=== PATIENT | female | born 2000 | race African-American/Black ===

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

== ENCOUNTER 2019-08-07 08:10 | Emergency (ER) | payer BC ==
[2019-08-07 08:16] VITALS: BP 126/73
[2019-08-07] MEDS ORDERED: Lidocaine 2% VISCOUS* 15 ML UDC PO ONE (08:38)
[2019-08-07] MEDS ORDERED: Acetaminophen TAB* 325 MG PO ONE (08:38)
[2019-08-07 08:55] LABS: Rapid Strep Molecular Negative (Negative)
--- NOTE | 2019-08-07 09:48 | ED ---
Throat Pain/Nasal Congestion - HPI Summary HPI Summary: Pt presents to the ED with throat pain x 3 days. She was placed on abx for 48 hours after being treated for strep throat at . She was not swabbed at the time. Fevers at 101 at home, these reduce with ibuprofen and tylenol. Last Ibuprofen dose 4 hours ago. Afebrile at this time. No sweats or chills. No weakness. Pt otherwise healthy. Takes no medications. She has been on amoxicillin x 2 days without relief. Unable to sleep d/t pain. Sxs not worse or better with positioning, food or drink. - History of Current Complaint Chief Complaint: EDThroatPain Time Seen by Provider: 08/07/19 08:16 Hx Obtained From: Patient Onset/Duration: Sudden Onset Severity: Severe Associated Signs And Symptoms: Positive: Hoarseness. Negative: Dysphagia, FB Sensation, Drooling, Wheezing, Sinus Discomfort, Nasal Discharge - Epiglottits Risk Factors Epiglottis Risk Factors: Negative - Allergies/Home Medications Allergies/Adverse Reactions: Allergies Allergy/AdvReac Type Severity Reaction Status Date / Time No Known Allergies Allergy Verified 12/25/17 18:10 PMH/Surg Hx/FS Hx/Imm Hx Previously Healthy: Yes - Surgical History Surgery Procedure, Year, and Place: Lymph node removed 2015 - Immunization History Hx Pertussis Vaccination: No Immunizations Up to Date: Yes Infectious Disease History: No Infectious Disease History: Denies: Traveled Outside the [place] in Last 30 Days - Family History Known Family History: Positive: None - Social History Occupation: Unemployed, Student Lives: Dormitory/Roommates Alcohol Use: Weekly Hx Substance Use: No Substance Use Type: Reports: None Hx Tobacco Use: Yes Smoking Status (MU): Current Some Day Smoker Review of Systems Negative: Fever, Chills, Fatigue, Skin Diaphoresis Negative: Palpitations, Chest Pain Negative: Shortness Of Breath, Cough Genitourinary: Negative Positive: no symptoms reported, see HPI Negative: Arthralgia, Myalgia Negative: Anxious, Depressed All Other Systems Reviewed And Are Negative: Yes Physical Exam Triage Information Reviewed: Yes Vital Signs On Initial Exam: Initial Vitals Temp Pulse Resp BP Pulse Ox 97.9 F 89 18 126/73 100 08/07/19 08:14 08/07/19 08:14 08/07/19 08:14 08/07/19 08:14 08/07/19 08:14 Vital Signs Reviewed: Yes Appearance: Positive: Well-Appearing, Well-Nourished Skin: Positive: Warm, Skin Color Reflects Adequate Perfusion Head/Face: Positive: Normal Head/Face Inspection Eyes: Positive: EOMI, SHIVA, Conjunctiva Clear ENT: Positive: Pharyngeal erythema, Uvula midline. Negative: Pharynx normal, Nasal congestion, Nasal drainage, TMs normal, Tonsillar swelling, Tonsillar exudate, Trismus, Hoarse voice, Dental tenderness Neck: Positive: Supple, Nontender, No Lymphadenopathy Respiratory/Lung Sounds: Positive: Clear to Auscultation, Breath Sounds Present Cardiovascular: Positive: RRR, Pulses are Symmetrical in both Upper and Lower Extremities Musculoskeletal: Positive: Normal, Strength/ROM Intact Neurological: Positive: Speech Normal Psychiatric: Positive: Affect/Mood Appropriate AVPU Assessment: Alert Procedures - Sedation Patient Received Moderate/Deep Sedation with Procedure: No Diagnostics - Vital Signs Vital Signs Temp Pulse Resp BP Pulse Ox 08/07/19 09:06 97.9 F 89 18 126/73 100 08/07/19 08:14 97.9 F 89 18 126/73 100 - Laboratory Lab Results: Lab Results 08/07/19 Range/Units 08:35 Group A Strep Rapid Negative (Negative) Lab Statement: Any lab studies that have been ordered have been reviewed, and results considered in the medical decision making process. EENT Course/Dx - Course Course Of Treatment: Strep throat negative. Pharyngeal erythema with no tonsillar exudates or swelling bilaterally. Uvula midline. Malampati 1. Afebrile. VS stable. Given viscous lidocaine with good relief. Pt given tylenol PO. RX for prednisone, will continue abx for possible bacterial component and given viscous lidocaine. Will f/u with [facility] in 2 days. - Differential Diagnoses Differential Diagnoses: Other - sore throat, bacterial phayrngitis - Diagnoses Provider Diagnoses: Pharyngitis Discharge ED - Sign-Out/Discharge Documenting (check all that apply): Patient Departure - Discharge Plan Condition: Stable Disposition: HOME Prescriptions: Lidocaine 2% VISCOUS* [Xylocaine 2% Viscous*] 15 ml SWISH SPIT Q4H PRN #180 btl MDD 90 PRN Reason: Pain - Mild predniSONE TAB* [Deltasone TAB*] 50 mg PO DAILY #4 tab MDD 1 Patient Education Materials: Pharyngitis (ED) Forms: *School Release Referrals: [facility] - Kvng CAMACHO [Primary Care Provider] - Additional Instructions: Cepacol over the counter for pain control Ibuprofen 600mg three times daily Tylenol 650mg three times daily Use these intermittently every 3-4 hours for pain control - Billing Disposition and Condition Condition: STABLE Disposition: Home - Attestation Statements Provider Attestation: I was available for consultation for this patient. I did not evaluate the patient or participate in any medical decision making or disposition decisions unless I am specifically named in the chart as having consulted on the patient. If I have consulted on the patient, please see my own ED note on the patient encounter. Db Collier MD
== END 2019-08-07 09:05 | disposition home or self-care (01) ==
LOC: ED 08:10
DX: J02.9 Acute pharyngitis, unspecified (principal); R50.9 Fever, unspecified; Z72.0 Tobacco use
CPT/HCPCS: 87651; 99282; A9270-GY